=== PATIENT | female | born 1980 | race American Indian/Alaskan Native ===

== ENCOUNTER 2017-07-13 15:42 | Outpatient (CLI) | payer BC ==
--- NOTE | 2017-07-13 16:30 | Cat Scan Report ---
FINAL REPORT PROCEDURE: CT HEAD/BRAIN WO CON TECHNIQUE: Computerized tomography of the head was performed without contrast material. HISTORY: HYPERTENSION,DIZINESS COMPARISON: None FINDINGS: Brain volume is age appropriate. There is no intra or extra-axial hemorrhage. There is no infarction, mass effect or shift of midline structures. There is no gross mass lesion or leptomeningeal abnormality given limitation of lack of IV contrast. Visualized portions of the paranasal sinuses, mastoid air cells and middle ears are clear. IMPRESSION: Unremarkable examination
== END 2017-07-13 15:43 | disposition home or self-care (01) ==
LOC: CT 15:42
PROVIDERS: ATTEND Nurse Practitioner Family
DX: I95.9 Hypotension, unspecified (principal); R42 Dizziness and giddiness; R51 Headache; H57.8 Other specified disorders of eye and adnexa; W19.XXXA Unspecified fall, initial encounter; Y93.89 Activity, other specified; Y92.89 Other specified places as the place of occurrence of the external cause; Y99.8 Other external cause status
CPT/HCPCS: 70450